=== PATIENT | female | born 1990 | race Caucasian/White ===

== ENCOUNTER 2019-06-01 18:10 | Emergency (ER) | payer SELFPAY ==
[2019-06-01 19:18] LABS: ABSOLUTE BASOPHILS # (AUTO) 0.1 10^3/uL (0.0-0.2); ABSOLUTE EOSINOPHILS # (AUTO) 0.2 10^3/uL (0.0-0.6); ABSOLUTE LYMPHOCYTES (AUTO) 2.6 10^3/uL (0.5-4.7); ABSOLUTE MONOCYTES (AUTO) 0.4 10^3/uL (0.1-1.4); BASOPHILS % (AUTO) 1.1 % (0-2); EOSINOPHILS % (AUTO) 2.9 % (0-6); HEMATOCRIT 39.9 % (36.0-47.0); HEMOGLOBIN 13.8 g/dL (12.0-15.5); LYMPHOCYTES % (AUTO) 41.5 % (13-45); MEAN CORPUSCULAR HEMOGLOBIN 30.4 pg (27.0-33.4); MEAN CORPUSCULAR HGB CONC 34.4 g/dL (32.0-36.0); MEAN CORPUSCULAR VOLUME 88 fl (80-97); MONOCYTES % (AUTO) 6.7 % (3-13); PLATELET COUNT 207 10^3/uL (150-450); RED BLOOD COUNT 4.53 10^6/uL (3.72-5.28); RED CELL DISTRIBUTION WIDTH 13.7 % (11.5-14.0); SEGMENTED NEUTROPHILS % (AUTO) 47.8 % (42-78); TOTAL CELLS COUNTED % (AUTO) 100 %; WHITE BLOOD COUNT 6.3 10^3/uL (4.0-10.5)
[2019-06-01 19:24] LABS: APPEARANCE,URINE CLOUDY; BILIRUBIN,URINE NEGATIVE (NEGATIVE); GLUCOSE, URINE NEGATIVE (NEGATIVE); KETONES,URINE TRACE mg/dL (NEGATIVE); LEUKOCYTE ESTERASE,URINE SMALL (NEGATIVE); NITRITE,URINE NEGATIVE (NEGATIVE); PROTEIN,URINE 30 mg/dL (NEGATIVE)
[2019-06-01 19:25] LABS: COLOR,URINE DARK YELLOW
[2019-06-01 19:35] LABS: ALANINE AMINOTRANSFERASE 33 U/L (9-52); ALBUMIN 3.7 g/dL (3.5-5.0); ALKALINE PHOSPHATASE 47 U/L (38-126); ANION GAP 7 (5-19); ASPARTATE AMINO TRANSFERASE 32 U/L (14-36); BILIRUBIN,DIRECT 0.2 mg/dL (0.0-0.4); BILIRUBIN,TOTAL 0.6 mg/dL (0.2-1.3); BLOOD UREA NITROGEN 9 mg/dL (7-20); CARBON DIOXIDE 26 mmol/L (22-30); CHLORIDE 107 mmol/L (98-107); GLUCOSE 87 mg/dL (75-110); POTASSIUM 3.9 mmol/L (3.6-5.0); SODIUM 139.9 mmol/L (137-145); TOTAL PROTEIN 6.2 g/dL (6.3-8.2)
--- NOTE | 2019-06-01 20:31 | ER Document Report ---
ED GI/ - General Chief Complaint: Abdominal Pain Stated Complaint: ABDOMINAL PAIN Time Seen by Provider: 06/01/19 20:12 Primary Care Provider: IFTIKHAR CROOKS MD [ACTIVE STAFF] - Follow up as needed Mode of Arrival: Ambulatory Information source: Patient Notes: Patient is an otherwise healthy 28-year-old female presenting to the emergency department chief complaint of intermittent abdominal firmness. Patient describes a knot above her bellybutton that is intermittent over the last 2 months. She also reports occasional green diarrhea. She has not had any fever or vomiting. She denies any dysuria or abnormal vaginal discharge. TRAVEL OUTSIDE OF THE [place] IN LAST 30 DAYS: No - Related Data Allergies/Adverse Reactions: acetaminophen [From Percocet] Allergy (Verified 06/01/19 18:15) oxycodone HCl [From Percocet] Allergy (Verified 06/01/19 18:15) Past Medical History - General Information source: Patient - Social History Smoking Status: Never Smoker Frequency of alcohol use: None Drug Abuse: None Family History: Arthritis, CAD, Hyperlipidemia, Malignancy, Other - asthma Patient has suicidal ideation: No Patient has homicidal ideation: No Renal/ Medical History: Reports: Hx Ovarian Cysts. Denies: Hx Peritoneal Dialysis Surgical Hx: Negative - Immunizations Immunizations up to date: Yes Hx Diphtheria, Pertussis, Tetanus Vaccination: No Review of Systems - Review of Systems Constitutional: No symptoms reported EENT: No symptoms reported Cardiovascular: No symptoms reported Respiratory: No symptoms reported Gastrointestinal: Abdominal pain, Diarrhea Genitourinary: No symptoms reported Female Genitourinary: No symptoms reported Musculoskeletal: No symptoms reported Skin: No symptoms reported Hematologic/Lymphatic: No symptoms reported Neurological/Psychological: No symptoms reported Physical Exam - Vital signs Vitals: Temp Pulse Resp BP Pulse Ox 98.4 F 68 14 101/57 L 98 06/01/19 18:15 06/01/19 18:15 06/01/19 18:15 06/01/19 18:15 06/01/19 18:15 - Notes Notes: PHYSICAL EXAMINATION: GENERAL: Well-appearing, well-nourished and in no acute distress. HEAD: Atraumatic, normocephalic. EYES: Pupils equal round and reactive to light, extraocular movements intact, conjunctiva are normal. ENT: Nares patent, oropharynx clear without exudates. Moist mucous membranes. NECK: Normal range of motion, supple without lymphadenopathy LUNGS: Breath sounds clear to auscultation bilaterally and equal. No wheezes rales or rhonchi. HEART: Regular rate and rhythm without murmurs ABDOMEN: Soft, nontender, nondistended abdomen. No guarding, no rebound. No masses appreciated. Female : No CVA tenderness. Musculoskeletal: Normal range of motion, no pitting or edema. No cyanosis. NEUROLOGICAL: Cranial nerves grossly intact. Normal speech, normal gait. Normal sensory, motor exams PSYCH: Normal mood, normal affect. SKIN: Warm, Dry, normal turgor, no rashes or lesions noted. Course - Re-evaluation Re-evalutation: Labs as recorded. Urinalysis shows small leukocyte esterase with multiple WBCs. Will treat patient for urinary tract infection. Patient has what sounds like possibly an umbilical hernia. Will send patient for an abdomen ultrasound. Otherwise patient looks well, vital signs are unremarkable and patient will be discharged home after we get the ultrasound report. Anterior abdominal wall hernia noted on ultrasound with no evidence of incarceration. Patient will be discharged home at this time with consult to follow-up with surgery. Patient verbalizes understanding and agreement with plan. 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 Work note was provided for no heavy lifting and no strenuous activity. - Vital Signs Vital signs: Temp Pulse Resp BP Pulse Ox 98.1 F 60 18 109/60 99 06/01/19 22:45 06/01/19 22:45 06/01/19 22:45 06/01/19 22:45 06/01/19 22:45 - Laboratory Result Diagrams: 06/01/19 19:07 06/01/19 19:07 Laboratory results interpreted by me: 06/01/19 06/01/19 19:05 19:07 Total Protein 6.2 L Urine Protein 30 H Urine Ketones TRACE H Urine Urobilinogen 2.0 H Ur Leukocyte Esterase SMALL H Discharge - Discharge Clinical Impression: Hernia of anterior abdominal wall Urinary tract infection Qualifiers: Urinary tract infection type: site unspecified Hematuria presence: without hematuria Qualified Code(s): N39.0 - Urinary tract infection, site not specified Condition: Stable Disposition: HOME, SELF-CARE Additional Instructions: The ultrasound shows that you have a hernia on the abdominal wall just above your bellybutton. I will have you follow-up with outpatient surgery regarding this. You also have evidence of urinary tract infection in your urine sample. Please take the antibiotics as prescribed. Please drink plenty of fluids. Return to the emergency department with any new or worsening symptoms to include persistent abdominal pain, the hernia coming out and not being reproducible or being able to be pushed back in or redness at the area with severe pain. Prescriptions: Cephalexin [Cephalexin 500 MG Tablet] 1 tab PO BID #14 tablet Forms: Special Work Note Referrals: IFTIKHAR CROOKS MD [ACTIVE STAFF] - Follow up as needed
--- NOTE | 2019-06-01 21:29 | RADIOLOGY REPORT (SQ) ---
EXAM DESCRIPTION: US ABDOMEN DOPPLER LIMITED COMPLETED DATE/TME: 06/01/2019 20:28 CLINICAL HISTORY: eval for umbilical hernia COMPARISON: None. FINDINGS: Sonographic images obtained of the umbilical level demonstrated an area of abnormal echotexture measuring approximately 2.8 x 1 x 1.4 cm compatible with an anterior abdominal wall hernia. Questionable echogenic material with indistinct acoustic shadow could represent bowel loops. Correlation with a CT could be helpful for further evaluation. IMPRESSION: Anterior abdominal wall hernia. Correlation with a CT could be helpful for further evaluation as described above.
[2019-06-01 23:45] VITALS: BP 109/60
== END 2019-06-01 22:50 | disposition home or self-care (01) ==
LOC: ER 18:10
DX: K43.9 Ventral hernia without obstruction or gangrene (principal); N39.0 Urinary tract infection, site not specified; R19.7 Diarrhea, unspecified; Z88.5 Allergy status to narcotic agent; Z88.8 Allergy status to other drugs, medicaments and biological substances
CPT/HCPCS: 36415; 76705; 80053; 81001; 84703; 85025; 87086; 93976; 99284

== ENCOUNTER 2019-12-08 01:55 | Emergency (ER) | payer SELFPAY ==
[2019-12-08 02:01] VITALS: BP 113/72
--- NOTE | 2019-12-08 02:48 | RADIOLOGY REPORT (SQ) ---
EXAM DESCRIPTION: XR HIP 2 OR MORE VIEWS COMPLETED DATE/TME: 12/08/2019 00:00 CLINICAL HISTORY: 29 years, Female, bone pain COMPARISON: None. NUMBER OF VIEWS: Two TECHNIQUE: Two views of the right hip LIMITATIONS: None. FINDINGS: There is no acute fracture or dislocation. The hip and sacroiliac joints are intact. No radiopaque foreign body. IMPRESSION: No acute fracture or dislocation. copyright 2010 [employer]- All Rights Reserved
[2019-12-08] MEDS ORDERED: KETOROLAC TROMETHAMINE 60 MG/2 ML SDV IM ONE (04:12)
--- NOTE | 2019-12-08 04:16 | ER Document Report ---
HPI - HPI Time Seen by Provider: 12/08/19 03:27 Pain Level: 4 Context: Patient is a 29-year-old female that comes emergency department for chief complaint of fall and right hip pain. She states she was running and she had her right leg give out underneath her, she fell and landed on her right hip causing an abrasion to her right hip area. She states it hurts when she walks now and she is worried she broke her hip. She denies ankle pain, she partially fell on her forearm but she denies elbow pain, she denies hitting her head, she denies any other injuries. She denies or any daily medications. - REPRODUCTIVE Reproductive: DENIES: : Past Medical History - General Information source: Patient - Social History Smoking Status: Current Every Day Smoker Frequency of alcohol use: None Drug Abuse: None Lives with: Family Family History: Arthritis, CAD, Hyperlipidemia, Malignancy, Other - asthma Patient has suicidal ideation: No Patient has homicidal ideation: No Renal/ Medical History: Reports: Hx Ovarian Cysts. Denies: Hx Peritoneal Dialysis GI Medical History: Reports: Hx Hiatal Hernia - Immunizations Immunizations up to date: Yes Hx Diphtheria, Pertussis, Tetanus Vaccination: Yes Vertical Provider Document - CONSTITUTIONAL General Appearance: WD/WN, No Apparent Distress - INFECTION CONTROL TRAVEL OUTSIDE OF THE [place] IN LAST 30 DAYS: No - HEENT HEENT: Atraumatic, Normal ENT Exam, Normocephalic - NECK Neck: Normal Inspection - RESPIRATORY Respiratory: Breath Sounds Normal, No Respiratory Distress, Chest Non-Tender - CARDIOVASCULAR Cardiovascular: Regular Rate, Regular Rhythm. negative: Tachycardia - GI/ABDOMEN Gastrointestinal: Abdomen Soft, Abdomen Non-Tender. negative: Abdomen Tender - BACK Back: Normal Inspection - Non-tender back generally on palpation. No midline tenderness, no saddle anesthesia, no signs of trauma. Normal upper and lower extremity range of motion, normal strength, normal distal neurovascular exam. - MUSCULOSKELETAL/EXTREMETIES Musculoskeletal/Extremeties: MAEW, FROM, Tender - Patient with an abrasion and point tenderness over the left femoral trochanter. Inguinal/hip area is nontender. Patient can ambulate but with some pain radiating down the IT band. Knee exam is normal, ankle and foot exams are normal, range of motion of the hip is still intact, normal distal neurovascular exam. - NEURO Level of Consciousness: Awake, Alert, Appropriate Motor/Sensory: No Motor Deficit, No Sensory Deficit - DERM Integumentary: Warm, Dry, No Rash Course - Re-evaluation Re-evalutation: Patient with abrasion and tenderness over the right lateral femoral area at the location of the bursa and radiating down the right IT band. X-rays are negative for concerning findings or fracture, evaluation is reassuring and appears to be soft tissue injury only. Discussed this with patient. She was provided with crutches on request, Toradol here, work release, discussed recommendations and expectations. Discussed follow-up and return precautions. Patient states understanding and agreement. - Vital Signs Vital signs: Temp Pulse Resp BP Pulse Ox 98.4 F 72 16 113/72 100 12/08/19 02:00 12/08/19 02:00 12/08/19 02:00 12/08/19 02:00 12/08/19 02:00 Discharge - Discharge Clinical Impression: Skin abrasion Fall Qualifiers: Encounter type: initial encounter Qualified Code(s): W19.XXXA - Unspecified fall, initial encounter Contusion of right hip Qualifiers: Encounter type: initial encounter Qualified Code(s): S70.01XA - Contusion of right hip, initial encounter Condition: Stable Disposition: HOME, SELF-CARE Additional Instructions: Your x-ray does not show a fracture of the hip. Your evaluation is consistent with soft tissue contusion, probable injury/irritation of the bursa, and pain over the IT band. You will likely have bursitis and pain over the next several days, I recommend ice to the area 3-4 times a day, elevation, rest, use the crutches if needed for the first 2 to 3 days. Take the anti-inflammatory as prescribed. Symptoms should resolve with time. Return if you worsen including severe swelling, numbness, or severe pain. Prescriptions: Naproxen 500 mg PO BID PRN #20 tablet PRN Reason: Forms: Return to Work
== END 2019-12-08 04:57 | disposition home or self-care (01) ==
LOC: ER 01:55
DX: S70.01XA Contusion of right hip, initial encounter (principal); W18.30XA Fall on same level, unspecified, initial encounter; F17.200 Nicotine dependence, unspecified, uncomplicated
CPT/HCPCS: 99283; 96372; 73502; J1885

== ENCOUNTER 2020-03-04 20:58 | Emergency (ER) | payer SELFPAY ==
[2020-03-04 21:03] VITALS: BP 109/68
[2020-03-04] MEDS ORDERED: LIDOCAINE 2% VISCOUS SOLN 15 ML UDCUP PO ONE (21:15)
[2020-03-04] MEDS ORDERED: PENICILLIN V POTASSIUM 500 MG TABLET PO ONE (21:15)
--- NOTE | 2020-03-04 21:18 | ER Document Report ---
ED General - General Chief Complaint: Toothache Stated Complaint: TOOTHACHE Notes: Patient is a 29-year-old white female with a history of poor dentition and gingivitis who presents to the emergency department the chief complaint of left- sided upper dental pain and swelling of the gums. She states she has had a prior episode like this in the past that was transient. She states she is been trying some salt water gargles with improvement. She states in the past she was chewing gum and fractured the posterior uppermost molar. Has not seen a dentist. She states the lateral gumline to the left upper is swollen and tender as well. Denies any tongue or throat swelling. No pooling of secretions or shortness of breath. No fever or drainage in the mouth. No nausea, vomiting or diarrhea. TRAVEL OUTSIDE OF THE [place] IN LAST 30 DAYS: No - Related Data Allergies/Adverse Reactions: oxycodone HCl [From Percocet] Allergy (Verified 03/04/20 21:17) Past Medical History - Social History Smoking Status: Current Every Day Smoker Family History: Arthritis, CAD, Hyperlipidemia, Malignancy, Other - asthma Patient has suicidal ideation: No Patient has homicidal ideation: No Renal/ Medical History: Reports: Hx Ovarian Cysts. Denies: Hx Peritoneal Dialysis GI Medical History: Reports: Hx Hiatal Hernia - Immunizations Immunizations up to date: Yes Hx Diphtheria, Pertussis, Tetanus Vaccination: Yes Review of Systems - Review of Systems EENT: Dental problem -: Yes All other systems reviewed and negative Physical Exam - Vital signs Vitals: Pulse Resp BP Pulse Ox 78 16 109/68 100 03/04/20 21:02 03/04/20 21:02 03/04/20 21:02 03/04/20 21:02 - General General appearance: Appears well, Alert In distress: None - HEENT Head: Normocephalic, Atraumatic Eyes: Normal Conjunctiva: Normal Extraocular movements intact: Yes Eyelashes: Normal Pupils: PERRL Ears: Normal External canal: Normal Tympanic membrane: Normal Sinus: Normal Nasal: Normal Mouth/Lips: Other - Old tooth fracture to the left upper posterior most molar. The affected tooth is tender to percussion. There is diffuse gingivitis involving the lateral gumlines, worse to the left upper, the left upper is slightly erythematous and tender to palpation. No gingival abscess. Patent airway. Handling secretions well. No sublingual or submental swelling. No trismus. Pharynx: Normal Neck: Normal, Supple. No: Lymphadenopathy - Respiratory Respiratory status: No respiratory distress Chest status: Nontender Breath sounds: Normal Chest palpation: Normal - Cardiovascular Rhythm: Regular Heart sounds: Normal auscultation - Neurological Neuro grossly intact: Yes Cognition: Normal Orientation: AAOx4 - Psychological Associated symptoms: Normal affect, Normal mood - Skin Skin Temperature: Warm Skin Moisture: Dry Skin Color: Normal Course - Re-evaluation Re-evalutation: 03/04/20 21:21 History and physical consistent with gingivitis and dental abscess. Started on Pen-Vee K here. Sent home with Pen-Vee K, lidocaine oropharyngeal solution and Peridex. Counseled regarding the importance of outpatient follow-up with a dentist. Advise she return here or any ER immediately with any new, persistent or worsening symptoms. She verbalized understood and agreed. - Vital Signs Vital signs: Temp Pulse Resp BP Pulse Ox 78 16 109/68 100 03/04/20 21:02 03/04/20 21:02 03/04/20 21:02 03/04/20 21:02 Discharge - Discharge Clinical Impression: Dental abscess, Dentalgia, Gingivitis Condition: Stable Disposition: HOME, SELF-CARE Instructions: Penicillin V K ([facility]), Toothache ([facility]) Additional Instructions: Follow-up with your regular doctor in 2 to 3 days for reevaluation. Return here or any ER immediately with any new, persistent or worsening symptoms. Please see the dentist as soon as possible. Prescriptions: Penicillin V Potassium [Penicillin Vk 500 mg Tablet] 500 mg PO Q6 #39 tablet Chlorhexidine Gluconate [Peridex] 15 ml MM BID #120 ml Lidocaine HCl [Xylocaine 2% Viscous Soln 15 ml Udcup] 15 ml MM Q6 PRN #20 udc PRN Reason:
== END 2020-03-04 21:30 | disposition home or self-care (01) ==
LOC: ER 20:58
DX: K04.7 Periapical abscess without sinus (principal); K05.10 Chronic gingivitis, plaque induced; K08.89 Other specified disorders of teeth and supporting structures; F17.200 Nicotine dependence, unspecified, uncomplicated; Z88.6 Allergy status to analgesic agent; Z88.5 Allergy status to narcotic agent
CPT/HCPCS: 99282; J3490

== ENCOUNTER 2020-05-28 13:40 | Emergency (ER) | payer SELFPAY ==
[2020-05-28 13:52] VITALS: BP 108/62
--- NOTE | 2020-05-28 14:07 | ER Document Report ---
HPI - HPI Patient complains to provider of: itchy vaginal area Time Seen by Provider: 05/28/20 13:48 Onset: Last week Onset/Duration: Waxing and waning Quality of pain: No pain Pain Level: 0 Associated Symptoms: None Exacerbated by: Denies - REPRODUCTIVE Reproductive: DENIES: : Past Medical History - General Information source: Patient - Social History Smoking Status: Never Smoker Chew tobacco use (# tins/day): No Frequency of alcohol use: None Drug Abuse: None Family History: Arthritis, CAD, Hyperlipidemia, Malignancy, Other - asthma Patient has homicidal ideation: No Renal/ Medical History: Reports: Hx Ovarian Cysts. Denies: Hx Peritoneal Dialysis GI Medical History: Reports: Hx Hiatal Hernia - Immunizations Immunizations up to date: Yes Hx Diphtheria, Pertussis, Tetanus Vaccination: Yes Vertical Provider Document - CONSTITUTIONAL Agree With Documented VS: Yes - INFECTION CONTROL TRAVEL OUTSIDE OF THE [place] IN LAST 30 DAYS: No - HEENT HEENT: Atraumatic, Conjuctival Injection, Normocephalic, PERRLA - NECK Neck: Normal Inspection - RESPIRATORY Respiratory: Breath Sounds Normal - CARDIOVASCULAR Cardiovascular: Regular Rate, Regular Rhythm - GI/ABDOMEN Gastrointestinal: Abdomen Soft, Abdomen Non-Tender - REPRODUCTIVE Female Genitalia: Normal Inspection Notes: External labia red moist tender - BACK Back: Normal Inspection - MUSCULOSKELETAL/EXTREMETIES Musculoskeletal/Extremeties: MAEW - NEURO Level of Consciousness: Awake, Alert - DERM Integumentary: Warm, Dry Course - Vital Signs Vital signs: Temp Pulse Resp BP Pulse Ox 98.9 F 85 16 108/62 100 05/28/20 13:50 05/28/20 13:50 05/28/20 13:50 05/28/20 13:50 05/28/20 13:50 - Laboratory Laboratory results interpreted by me: 05/28/20 17:08 Labs- All tests 24 hr 05/28/20 05/28/20 05/28/20 14:55 14:55 15:00 Urine Color YELLOW Urine Appearance TURBID Urine pH 7.0 Ur Specific [place] 1.003 Urine Protein 30 H Urine Glucose (UA) NEGATIVE Urine Ketones NEGATIVE Urine Blood SMALL H Urine Nitrite (Reflex) NEGATIVE Urine Bilirubin NEGATIVE Urine Urobilinogen NEGATIVE Leukocyte Esterase Rfl LARGE H Urine RBC (Auto) 31 Urine Bacteria (Auto) 3+ Urine WBC (Reflex) > 182 Urine WBC Clumps OCC Squamous Epi Cells Auto 30 U Non-Squamous Epis Auto 2 Urine Mucus (Auto) RARE Urine Ascorbic Acid NEGATIVE Epi Cells (Wet Prep) 4+ EPITHELIALS SEEN Bacteria (Wet Prep) 4+ BACTERIA SEEN Trichomonas (Wet Prep) TRICHOMONAS SEEN Vaginal WBC 2+ WBCS SEEN Vaginal Yeast NO YEAST SEEN Chlamydia DNA (PCR) NOT DETECTED N.gonorrhoeae DNA (PCR) DETECTED H Discharge - Discharge Clinical Impression: infection, trichomonal, Acute gonococcal infection of lower genitourinary tract Condition: Fair Disposition: HOME, SELF-CARE Instructions: Antibiotic Shot ([facility]), Gonorrhea ([facility]), Doxycycline ([facility]) Additional Instructions: Must follow-up with the health department. Increase fluid intake rest return to ER for any change worsening condition. Prescriptions: Metronidazole [Flagyl 500 mg Tablet] 500 mg PO Q6H #40 tablet Doxycycline Hyclate [Vibramycin 100 mg Tablet] 100 mg PO BID #20 tablet
[2020-05-28 15:29] LABS: BACTERIA (WET MOUNT) 4+ BACTERIA SEEN; EPITHELIALS (WET MOUNT) 4+ EPITHELIALS SEEN; T.VAGINALIS (WET MOUNT) TRICHOMONAS SEEN; WBCS (WET MOUNT) 2+ WBCS SEEN; YEAST (WET MOUNT) NO YEAST SEEN
[2020-05-28 15:31] LABS: APPEARANCE,URINE TURBID; BILIRUBIN,URINE NEGATIVE (NEGATIVE); COLOR,URINE YELLOW; GLUCOSE, URINE NEGATIVE (NEGATIVE); KETONES,URINE NEGATIVE (NEGATIVE); PROTEIN,URINE 30 mg/dL (NEGATIVE); URINE SPECIFIC GRAVITY 1.003; UROBILINOGEN,URINE NEGATIVE mg/dL (<2.0)
[2020-05-28 16:56] LABS: CHLAM PCR NOT DETECTED (NOT DETECT)
[2020-05-28] MEDS ORDERED: PENICILLIN G BENZATHINE 1.2 MILLION UNIT/2 ML DISP.SYRIN IM ONE (17:06)
[2020-05-28] MEDS ORDERED: METRONIDAZOLE 500 MG TABLET PO ONE (17:07)
--- NOTE | 2020-06-01 01:43 | ER Document Report ---
Doctor's Note Notes: 06/01/20 01:42 Patient came back into the department as a nurse visit to receive the Rocephin 250 mg IM and azithromycin 1 g po for the gonorrheal infection. I sent a prescription to the pharmacy for some Leonie as she states the Flagyl she is taking is upsetting her stomach.
== END 2020-05-28 17:33 | disposition home or self-care (01) ==
LOC: ER 13:40
DX: N73.0 Acute parametritis and pelvic cellulitis (principal); A59.09 Other urogenital trichomoniasis; L29.2 Pruritus vulvae
CPT/HCPCS: 99283; 96372; 87210; 81001; 87491; 87591; J0561